=== PATIENT | male | born 1970 | race Two or more races ===

== ENCOUNTER 2022-11-23 09:00 | Inpatient (IN) | payer MEDICAID, OTHER ==
[~2022-11-23] VITALS: Ht 172.7 cm; Wt 76.6 kg
[2022-11-23 09:19] LABS: Basophils # (auto) 0.1 10 ^3/uL (0-0.2); Basophils % (auto) 0.8 % (0.0-2.0); Eosinophils # (auto) 0.1 10 ^3/uL (0-0.8); Eosinophils % (auto) 0.9 % (0.0-7.0); Hematocrit 27.7 % (41.0-53.0); Hemoglobin 9.4 g/dL (13.5-17.5); Lymphocytes # (auto) 1.4 10 ^3/uL (0.4-5.4); Lymphocytes % (auto) 14.6 % (10.0-50.0); Mean Corpuscular Hemoglobin 30.3 pg (28.0-32.0); Mean Corpuscular Volume 89.2 fL (80.0-100.0); Monocytes # (auto) 0.5 10 ^3/uL (0-1.3); Monocytes % (auto) 5.3 % (0.0-12.0); Neutrophils # (auto) 7.7 10 ^3/uL (1.6-8.6); Neutrophils % (auto) 78.4 % (37.0-80.0); Red Blood Cells 3.11 10^6/uL (4.5-5.90); Red Cell Distribution Width 14.6 % (11.8-14.3); White Blood Cell 9.8 10^3/uL (4.4-10.8)
[2022-11-23 09:36] LABS: BUN/Creatinine Ratio 16.7 (10.0-20.0); Calcium 7.6 mg/dL (8.5-10.1); Potassium 4.5 mmol/L (3.5-5.1)
[2022-11-23 09:38] LABS: Bilirubin, Total 1.4 mg/dL (0.2-1.0); Total Protein 6.6 g/dL (6.4-8.2)
[2022-11-23] MEDS ORDERED: SODIUM CHLORIDE 0.9% 1,000 ML IV ONE ×2 (11:15)
[2022-11-23] MEDS ORDERED: MORPHINE SULFATE INJ 2 MG/ml SYRG IV PRN (12:30)
[2022-11-23] MEDS ORDERED: ONDANSETRON HCL 4 MG/2 ML VIAL IV PRN (12:30)
[2022-11-23] MEDS: SODIUM CHLORIDE 0.9% 1,000 ML IV SCH ×2 (12:30→20:50)
[2022-11-23] MEDS ORDERED: DEXTROSE (50%) 50ML SYRG IV PRN (12:30)
[2022-11-23] MEDS ORDERED: DOCUSATE SOD 100 MG CAP PO PRN (12:30)
[2022-11-23 14:21] LABS: Albumin 1.9 g/dL (3.4-5.0); Bilirubin, Direct 0.6 mg/dL (0-0.2)
[2022-11-23 14:23] LABS: Total Protein 6.2 g/dL (6.4-8.2)
[2022-11-23 14:36] LABS: Thyroid Stimulating Hormone 1.73 uIU/mL (0.358-3.74)
[2022-11-23] MEDS ORDERED: IOHEXOL 350 MG/ML 100ML IJ ONE (15:06)
[2022-11-23 16:53] VITALS: BP 107/67
[2022-11-23] MEDS: ACCU-CHEK COMFORT CURVE STRIP VI SCH ×2 (16:57→22:02)
[2022-11-23] MEDS: InsuLIN REG 1unit/0.01ml Soln (100units/ml) SC SCH ×2 (16:57→22:00)
[2022-11-23 22:00] VITALS: BP 94/59
[2022-11-23] MEDS ORDERED: ENOXAPARIN SOD 100 MG/1 ML SYRINGE SC SCH (22:00)
[2022-11-23] MEDS: ENOXAPARIN SOD 80 MG/0.8ML SYRINGE SC SCH (22:02)
[2022-11-23] MEDS: PANTOPRAZOLE 40 MG/10 ML VIAL INJ IV SCH (22:02)
[2022-11-23 22:45] LABS: Urine Bacteria NONE SEEN /hpf (None Seen); Urine Blood TRACE /uL (Negative); Urine Specific Gravity 1.027 (1.001-1.035); Urine WBC 2 /hpf (0 - 3)
[2022-11-23 23:01] LABS: Alcohol, Urine < 3.0 mg/dL (0-10); Amphetamine Screen, Urine NEGATIVE (NEGATIVE); Barbiturate Scree,Urine NEGATIVE (NEGATIVE); Benzodiazephine Screen, Urine NEGATIVE (NEGATIVE); Cannabinoid Screen, Urine POSITIVE (NEGATIVE); Cocaine Screen, Urine NEGATIVE (NEGATIVE); Phencyclidine Screen, Urine NEGATIVE (NEGATIVE)
[2022-11-23 23:08] LABS: Opiate Scree,Urine NEGATIVE (NEGATIVE)
[2022-11-23] MEDS ORDERED: ACETAMINOPHEN 325 MG TAB PO PRN (23:15)
[2022-11-24 05:00] VITALS: BP 91/60
[2022-11-24] MEDS: SODIUM CHLORIDE 0.9% 1,000 ML IV SCH ×3 (05:10→22:01)
[2022-11-24 06:43] LABS: Basophils # (auto) 0.1 10 ^3/uL (0-0.2); Basophils % (auto) 0.8 % (0.0-2.0); Hemoglobin 8.1 g/dL (13.5-17.5); Lymphocytes # (auto) 1.5 10 ^3/uL (0.4-5.4); Monocytes # (auto) 0.6 10 ^3/uL (0-1.3); Red Cell Distribution Width 14.5 % (11.8-14.3)
[2022-11-24 06:44] LABS: Albumin 1.9 g/dL (3.4-5.0); Calcium 7.4 mg/dL (8.5-10.1)
[2022-11-24 06:46] LABS: Eosinophils # (auto) 0.2 10 ^3/uL (0-0.8); Eosinophils % (auto) 1.8 % (0.0-7.0); Lymphocytes % (auto) 17.7 % (10.0-50.0); Mean Corpuscular Hemoglobin 30.9 pg (28.0-32.0); Mean Corpuscular Hgb Conc. 33.7 g/dL (32.0-36.0); Mean Corpuscular Volume 91.6 fL (80.0-100.0); Monocytes % (auto) 6.6 % (0.0-12.0); Neutrophils # (auto) 6.2 10 ^3/uL (1.6-8.6); Neutrophils % (auto) 73.1 % (37.0-80.0); Nucleated Red Blood Cells % 0.1 %; Red Blood Cells 2.62 10^6/uL (4.5-5.90); White Blood Cell 8.4 10^3/uL (4.4-10.8)
[2022-11-24 06:49] LABS: BUN/Creatinine Ratio 14.9 (10.0-20.0); Bilirubin, Total 0.9 mg/dL (0.2-1.0); Total Protein 5.8 g/dL (6.4-8.2)
[2022-11-24] MEDS: InsuLIN REG 1unit/0.01ml Soln (100units/ml) SC SCH ×4 (07:00→22:00)
[2022-11-24] MEDS: ACCU-CHEK COMFORT CURVE STRIP VI SCH ×4 (07:00→22:00)
[2022-11-24 07:06] LABS: RPR Non Reactive (Non Reactive)
[2022-11-24 09:31] VITALS: BP 102/64
[2022-11-24] MEDS: ENOXAPARIN SOD 80 MG/0.8ML SYRINGE SC SCH (10:00)
[2022-11-24] MEDS: PANTOPRAZOLE 40 MG/10 ML VIAL INJ IV SCH ×2 (10:09→21:58)
[2022-11-24 12:52] VITALS: BP 98/65
[2022-11-24] MEDS: GABAPENTIN 100 MG CAP PO SCH ×2 (14:41→21:58)
[2022-11-24 17:00] VITALS: BP 98/68
[2022-11-24 22:00] VITALS: BP 106/65
[2022-11-25 05:00] VITALS: BP 94/57
[2022-11-25] MEDS: InsuLIN REG 1unit/0.01ml Soln (100units/ml) SC SCH ×4 (05:58→21:58)
[2022-11-25] MEDS: ACCU-CHEK COMFORT CURVE STRIP VI SCH ×4 (06:00→21:58)
[2022-11-25] MEDS: GABAPENTIN 100 MG CAP PO SCH ×3 (06:03→21:51)
[2022-11-25] MEDS: SODIUM CHLORIDE 0.9% 1,000 ML IV SCH ×3 (06:04→17:57)
[2022-11-25 07:01] LABS: Eosinophils # (auto) 0.1 10 ^3/uL (0-0.8); Eosinophils % (auto) 0.9 % (0.0-7.0); Nucleated Red Blood Cells % 0.1 %; Red Blood Cells 2.68 10^6/uL (4.5-5.90)
[2022-11-25 07:04] LABS: Basophils # (auto) 0 10 ^3/uL (0-0.2); Basophils % (auto) 0.5 % (0.0-2.0); Hematocrit 23.9 % (41.0-53.0); Hemoglobin 8.2 g/dL (13.5-17.5); Lymphocytes # (auto) 1.6 10 ^3/uL (0.4-5.4); Lymphocytes % (auto) 17.3 % (10.0-50.0); Mean Corpuscular Hemoglobin 30.4 pg (28.0-32.0); Mean Corpuscular Hgb Conc. 34.1 g/dL (32.0-36.0); Mean Corpuscular Volume 89.1 fL (80.0-100.0); Monocytes # (auto) 0.6 10 ^3/uL (0-1.3); Monocytes % (auto) 6.3 % (0.0-12.0); Neutrophils # (auto) 6.9 10 ^3/uL (1.6-8.6); Red Cell Distribution Width 14.4 % (11.8-14.3); White Blood Cell 9.1 10^3/uL (4.4-10.8)
[2022-11-25 07:23] LABS: Potassium 4.5 mmol/L (3.5-5.1)
[2022-11-25 07:38] LABS: Bilirubin, Total 0.8 mg/dL (0.2-1.0); Calcium 7.8 mg/dL (8.5-10.1)
[2022-11-25 09:00] VITALS: BP 92/60
[2022-11-25] MEDS: PANTOPRAZOLE 40 MG/10 ML VIAL INJ IV SCH ×2 (09:47→21:51)
[2022-11-25 12:18] VITALS: BP 91/71
[2022-11-25 17:14] VITALS: BP 96/49
[2022-11-25] MEDS ORDERED: cefTRIAXone 1GM/50ML D5W 50 ML IV ONE (17:45)
[2022-11-25] MEDS: SODIUM CHL 0.9% IV SCH (21:57)
[2022-11-25] MEDS: IRON SUCROSE COMPLEX IV SCH (21:57)
[2022-11-25 22:00] VITALS: BP 94/50
[2022-11-26] MEDS: SODIUM CHLORIDE 0.9% 1,000 ML IV SCH (03:30)
[2022-11-26 05:00] VITALS: BP 96/54
[2022-11-26 06:07] LABS: % Iron Saturation 19.6 % (20-55)
[2022-11-26 06:08] LABS: BUN/Creatinine Ratio 7.2 (10.0-20.0); Calcium 7.5 mg/dL (8.5-10.1); Potassium 4.2 mmol/L (3.5-5.1)
[2022-11-26 06:11] LABS: Bilirubin, Total 0.8 mg/dL (0.2-1.0); Total Protein 6.2 g/dL (6.4-8.2)
[2022-11-26] MEDS: GABAPENTIN 100 MG CAP PO SCH ×2 (06:21→15:54)
[2022-11-26] MEDS: ACCU-CHEK COMFORT CURVE STRIP VI SCH ×3 (06:22→17:00)
[2022-11-26] MEDS: InsuLIN REG 1unit/0.01ml Soln (100units/ml) SC SCH ×3 (06:23→17:00)
[2022-11-26 09:00] VITALS: BP 95/66
[2022-11-26] MEDS ORDERED: cefTRIAXone 1GM/50ML D5W 50 ML IV SCH (09:00)
[2022-11-26] MEDS: PANTOPRAZOLE 40 MG/10 ML VIAL INJ IV SCH (10:21)
[2022-11-26 12:38] VITALS: BP 95/60
[2022-11-26] MEDS ORDERED: PANT40T PO (16:12)
[2022-11-26] MEDS ORDERED: NUTR-340 PO (16:12)
[2022-11-26] MEDS ORDERED: GAB100C PO (16:12)
[2022-11-26] MEDS ORDERED: FERR-7 PO (16:13)
[2022-11-26 16:28] VITALS: BP 91/63
[2022-11-26] MEDS: IRON SUCROSE COMPLEX IV SCH (18:00)
[2022-11-26] MEDS: SODIUM CHL 0.9% IV SCH (18:00)
== END 2022-11-26 18:30 | disposition home or self-care (01) | DRG 422 ==
LOC: ER 09:00 → TELE 12:33 → TELE-WESTW 15:13
PROVIDERS: ADMIT Nurse Practitioner Family; ATTEND Hospitalist
DX: E86.0 Dehydration (principal); E43 Unspecified severe protein-calorie malnutrition; K92.2 Gastrointestinal hemorrhage, unspecified; D63.8 Anemia in other chronic diseases classified elsewhere; E87.1 Hypo-osmolality and hyponatremia; Z20.822 Contact with and (suspected) exposure to COVID-19; D50.0 Iron deficiency anemia secondary to blood loss (chronic); K21.9 Gastro-esophageal reflux disease without esophagitis; Z68.25 Body mass index [BMI] 25.0-25.9, adult
CPT/HCPCS: 36415; 70450; 71045; 71275; 76705; 80053; 80076; 80307; 81001; 82270; 82550; 82553; 82607; 82728; 82962; 82977; 83540; 83550; 83605; 83615; 83690; 84443; 84484; 85025; 85379; 85652; 86592; 86703; 86850; 86900; 86901; 87426; 93005; 93886; 93970; 96360; 96361; 97110; 97116; 97163; 97530; C9113; G0378; J0696; J1756

== ENCOUNTER → 2022-12-18 | Outpatient (CLI) | payer MEDICAID ==
[~2022-12-18] MED LIST: FERR-7 PO; GAB100C PO; NUTR-340 PO; PANT40T PO
== END | disposition home or self-care (01) ==
LOC: LAB 14:05
PROVIDERS: ATTEND Internal Medicine
DX: I10 Essential (primary) hypertension (principal)
CPT/HCPCS: 82274

== ENCOUNTER → 2023-01-23 | Outpatient (CLI) | payer MEDICAID | END | disposition home or self-care (01) | LOC: XYW 08:34 | PROVIDERS: ATTEND Internal Medicine | DX: I35.0 Nonrheumatic aortic (valve) stenosis (principal); G45.9 Transient cerebral ischemic attack, unspecified | CPT/HCPCS: 93306 ==

== ENCOUNTER 2024-03-26 12:12 | Emergency (ER) | payer MEDICAID | END 2024-03-26 13:26 | disposition left against medical advice (07) | LOC: ER 12:12 | DX: Z04.3 Encounter for examination and observation following other accident (principal); Z53.21 Procedure and treatment not carried out due to patient leaving prior to being seen by health care provider ==

== ENCOUNTER 2024-03-28 10:09 | Emergency (ER) | payer MEDICAID ==
[~2024-03-28] VITALS: Ht 175.3 cm; Wt 83.9 kg
[2024-03-28 11:18] VITALS: BP 155/96; PULSE 65; RESP 15; TEMP 98; O2SAT 99
[2024-03-28] MEDS: HYDROcodone-ACET 5/325MG TAB PO ONE (11:18)
[2024-03-28] MEDS ORDERED: IBU600T PO (12:59)
== END 2024-03-28 13:00 | disposition left against medical advice (07) ==
LOC: ER 10:09
DX: S76.811A Strain of other specified muscles, fascia and tendons at thigh level, right thigh, initial encounter (principal); S76.011A Strain of muscle, fascia and tendon of right hip, initial encounter; Z79.899 Other long term (current) drug therapy; W01.0XXA Fall on same level from slipping, tripping and stumbling without subsequent striking against object, initial encounter; Y93.89 Activity, other specified; Y92.59 Other trade areas as the place of occurrence of the external cause; Y99.8 Other external cause status
CPT/HCPCS: 36415; 72100; 73502; 82550

== ENCOUNTER 2024-10-01 10:50 | Emergency (ER) | payer MEDICAID ==
[~2024-10-01] VITALS: Ht 175.3 cm; Wt 79.5 kg
[~2024-10-01 10:50] MED LIST changes: +IBU600T PO
[2024-10-01 13:10] VITALS: BP 138/77; PULSE 71; RESP 16; TEMP 98.5; O2SAT 99
[2024-10-01] MEDS: LIDOCAINE 1% HCL (LOCAL ANESTH.) INJ 20ML MDV IJ ONE (13:21)
--- NOTE | 2024-10-01 13:29 | ED.PDOC ---
HPI Comments A 53 YEAR OLD MALE PRESENTS TO THE ED WITH COMPLAINT OF LACERATION OF RIGHT INNER THIGH AND LEFT LOWER LEG. PATIENT STATES HE ACCIDENTALLY FELL AND HIT A CHAIN-LINK FENCE. PATIENT REPORTS HE SUSTAINED A LACERATION ON HIS RIGHT INNER THIGH AND LEFT LOWER LEG. BLEEDING IS CONTROLLED AT THIS TIME. PATIENT DENIES HEAD INJURY, NECK INJURY, LOC, FEVER, CHILLS, SHORTNESS OF BREATH, CHEST PAIN, ABDOMINAL PAIN, NAUSEA, VOMITING, HEADACHE, OR OTHER COMPLAINTS. NO OTHER SYMPTOMS OR MODIFYING FACTORS AT THIS TIME. PATIENT IS ALERT, ORIENTED X 4, AND HAS STEADY GAIT. Chief Complaint: Laceration Time Seen by MD: 11:25 Primary Care Provider: CHER Fischer Notes: Nurses Notes, Medications, Allergies Allergies: Coded Allergies: NO KNOWN ALLERGIES (Unverified , 01/02/12) Home Meds Active Scripts Acetaminophen (Tylenol Extra Strength Fo) 500 Mg Tab, 1000 MG PO BID, #30 TAB Prov:WILBERT THORPE 10/01/24 Cephalexin Monohydrate (Cephalexin) 500 Mg Cap, 1 CAP PO QID, #32 CAP Prov:WILBERT THORPE 10/01/24 Ibuprofen Micronized (MOTRIN TABLET) 600 Mg Tb, 600 MG PO TID PRN, #20 TAB *Black box warning-NSAIDS can increase risk of [place] & hypertension, GI irritation, ulceration, bleed, perferation. Do not use post cardiac surgery. Use short duration/lowest effective dose. Prov:NICOL HOLT MD 03/28/24 Ferrous Sulfate (Iron) 325 Mg Tab, 325 MG PO MWF, #30 TAB Prov:JOSE ANGEL CHAPMAN MD 11/26/22 Nutritional Supplements (Boost Plus) Strawber Liq, 1 BOT PO DAILY@LUNCH, #30 LIQ Prov:JOSE ANGEL CHAPMAN MD 11/26/22 Gabapentin (Gabapentin) 100 Mg Cap, 100 MG PO TID, #90 CAP Prov:JOSE ANGEL CHAPMAN MD 11/26/22 Pantoprazole Sodium Sesquihydr (Pantoprazole Sodium) 40 Mg Tab, 40 MG PO DAILY@BREAKFAST, #30 TAB Prov:JOSE ANGEL CHAPMAN MD 11/26/22 Information Source: Patient Mode of Arrival: Ambulatory Severity: Moderate Severity of Laceration: Controlled Bleeding Complexity: Simple Timing: Hours Prehospital treatment: None Laceration Location: Leg (RIGHT INNER THIGH, LEFT LOWER LEG) Mechanism: Metal, Fall Last Tetanus: Unknown Laceration Length (cm): 8 Skin Type: Linear Depth of Injury: Skin, SQ Tendon Injury: 0% Capillary Refill: < 3 seconds Tender: Moderate Discharge: None Erythema: None Associated Signs and Symptoms: None Past Medical History Past Medical History (Other): CHRONIC LOW BACK PAIN Surgical History: Denies all surgeries Family History Family History: Reviewed,noncontributory to illness Social History Smoker: Non-Smoker Alcohol: Denies ETOH Use Drugs: Denies Drug Use Lives In: Home Constitutional: denies: chills, diaphoresis, fatigue, fever, malaise, sweats, weakness, others EENTM: denies: blurred vision, double vision, ear bleeding, ear discharge, ear drainage, ear pain, ear ringing, eye pain, eye redness, hearing loss, mouth pain, mouth swelling, nasal discharge, nose bleeding, nose congestion, nose pain, photophobia, tearing, throat pain, throat swelling, voice changes, others Respiratory: denies: cough, hemoptysis, orthopnea, SOB at rest, shortness of breath, SOB with excertion, stridor, wheezing, others Cardiovascular: denies: chest pain, dizzy spells, diaphoresis, Dyspnea on exertion, edema, irregular heart beat, left arm pain, lightheadedness, palpitations, PND, syncope, others Gastrointestinal: denies: abdomen distended, abdominal pain, blood streaked bowels, constipated, diarrhea, dysphagia, difficulty swallowing, hematemesis, melena, nausea, poor appetite, poor fluid intake, rectal bleeding, rectal pain, vomiting, others Genitourinary: denies: burning, dysuria, flank pain, frequency, hematuria, incontinence, penile discharge, penile sore, pain, testicle pain, testicle swelling, urgency, others Neurological: denies: dizziness, fainting, headache, left sided numbness, left sided weakness, numbness, paresthesia, pre-existing deficit, right sided numbness, right sided weakness, seizure, speech problems, tingling, tremors, weakness, others Musculoskeletal: denies: back pain, gout, joint pain, joint swelling, muscle pain, muscle stiffness, neck pain, others Integumetry: reports: laceration (LACERATION OF RIGHT INNER THIGH AND LEFT LOWER LEG); denies: bruises, change in color, change in hair/nails, dryness, lesions, lumps, rash, wounds, others Allergic/Immunocompromised: denies: Difficulty Healing, Frequent Infections, Hives, Itching, others Hematologic/Lymphatic: denies: anemia, blood clots, easy bleeding, easy bruising, swollen glands, others Endocrine: denies: excessive hunger, excessive sweating, excessive thirst, excessive urination, flushing, intolerance to cold, intolerance to heat, unexplained weight gain, unexplained weight loss, others Psychiatric: denies: anxiety, bipolar disorder, depression, hopeless, panic disorder, schizophrenia, sleepless, suicidal, others All Other Systems: Reviewed and Negative Physical Exam General Appearance: No Apparent Distress, Normal HEENT: Normal ENT Inspection, PERRL/EOMI, Pharynx Normal, TMs Normal Neck: Full Range of Motion, Non-Tender, Normal, Normal Inspection Respiratory: Chest Non-Tender, Lungs Clear, No Accessory Muscle Use, No Respiratory Distress, Normal Breath Sounds Cardiovascular: No Edema, No JVD, No Murmur, No Gallop, Normal Peripheral Pulses, Regular Rate/Rhythm Breast Exam: Deferred Gastrointestinal: No Organomegaly, Non Tender, No Pulsatile Mass, Normal Bowel Sounds, Soft Genitalia: Deferred Pelvic: Deferred Rectal: Deferred Extremities: No calf tenderness, Normal capillary refill, Normal inspection, Normal range of motion, Non-tender, No pedal edema Musculoskeletal : Apperance: Normal Neurologic: Alert, bridge welder II-XII nml as Tested, No Motor Deficits, Normal Affect, Normal Mood, No Sensory Deficits Cerebellar Function: Normal Reflexes: Normal Skin: Dry, Lacerations (3CM LACERATION ON RIGHT INNER THIGH, NO BLEEDING AND FB, NORMAL ROM. 5CM LACERATION ON LEFT LATERAL LOWER LEG, NO BLEEDING AND FB, NEUROVASCULAR INTACT. ), Normal Color, Warm Peripheral Pulses: 2+ carotid (R), 2+ carotid (L), 2+ dorsalis pedis (R), 2+ dorsalis pedis (L) Lymphatic: No Adenopathy Was a procedure done? Was a procedure done?: Yes Sedation Sedation?: No Laceration Repair : Location RIGHT INNER THIGH, LEFT LOWER LEG Length RIGHT INNER THIGH: 3CM, LEFT LOWER LECM Anesthetic: Lidocaine, Without epi Laceration Repair Prep: Saline, by Irrigation Laceration Repair Wound Comple: epidermis/dermis repair Laceration Repair: Number of sutures (16), Skin, SQ, Size (4-0 ETHILON), Nylon, Simple, Gauze Informed consent obtained: No Risks, benefits, and alternati: Yes Images 1 - 2 - Differential diagnosis Generic Laceration: Abrasion/Contusion, Laceration, Avulsion Differential Diagnosis: N/A X-Ray, Labs, Meds, VS Vital Signs Date Time Temp Pulse Resp B/P (MAP) Pulse Ox O2 Delivery O2 Flow Rate FiO2 10/01/24 13:10 98.5 71 16 138/77 (97) 99 98.5 10/01/24 13:10 71 16 99 Room Air 10/01/24 11:15 98.5 71 6 138/77 (97) 99 98.5 X-Ray, Labs, Meds, VS Comment EXTERNAL MEDICAL RECORDS REVIEWED: [NONE] INDEPENDENT HISTORIANS: [NONE] SOCIAL DETERMINANTS OF HEALTH: [NONE] LABS ORDERED: NONE REVIEWED AND INTERPRETED RESULTS: NONE IMAGING ORDERED: NONE TREATMENTS ORDERED: LACERATION REPAIR, TD 0.5ML IM PROCEDURES PERFORMED: LACERATION REPAIR CRITICAL CARE TIME: NONE I HAVE DISCUSSED THE PATIENT WITH THE ATTENDING PHYSICIAN DR. JOHNSON AND HE AGREES WITH THE PATIENT'S PLAN OF CARE AND DISPOSITION. BASED ON HISTORY OF PRESENT ILLNESS, AND PHYSICAL EXAM, PATIENT WILL BE DISCHARGED HOME. SHARED DECISION MAKING: PATIENT INSTRUCTED TO FOLLOW UP WITH PRIMARY CARE PROVIDER IN 1-2 DAYS FOR RE-EVALUATION OF SYMPTOMS. PATIENT VERBALIZES UNDERSTANDING TO RETURN TO ED FOR NEW OR WORSENING SYMPTOMS OR IF FOLLOW UP WITH PCP CANNOT BE OBTAINED. PATIENT FEELS COMFORTABLE GOING HOME AT THIS TIME. ALL QUESTIONS ADDRESSED AT TIME OF DISCHARGE. Time of 1ST Reevaluation: 14:30 Reevaluation 1ST: Improved Patient Education/Counseling: Diagnosis, Treatment, Need For Follow Up Family Education/Counseling: Diagnosis, Treatment, Need For Follow Up Medical Screening: No EMC Exist At This Time Departure 1 Departure Time of Disposition: 14:40 Impression: Primary Impression: Laceration of right thigh Qualified Codes: S71.111A - Laceration without foreign body, right thigh, initial encounter Additional Impressions: Laceration of left lower leg Qualified Codes: S81.812A - Laceration without foreign body, left lower leg, initial encounter Status post fall Disposition: HOME / SELF CARE / HOMELESS Condition: Stable Additional Instructions: FOLLOW-UP WITH PCP IN 1 TO 2 DAYS. TAKE MEDICATIONS PRESCRIBED. RETURN TO ED FOR ANY NEW OR WORSENING SYMPTOMS. e-Prescriptions Acetaminophen (Tylenol Extra Strength Fo) 500 Mg Tab 1000 MG PO BID, #30 TAB Prov: WILBERT THORPE 10/01/24 Cephalexin Monohydrate (Cephalexin) 500 Mg Cap 1 CAP PO QID, #32 CAP Prov: WILBERT THORPE 10/01/24 Discharged With: Self Critical Care Note Critical Care Time?: No Stability Stability form required: No I personally scribed for WILBERT THORPE ([email or web address]) on 10/01/24 at 13:29. Electronically submitted by Mark Pennington ([employer]). I personally scribed for WILBERT THORPE ([email or web address]) on 10/01/24 at 13:59. Electronically submitted by Mark Pennington ([employer]). I personally scribed for WILBERT THORPE ([email or web address]) on 10/01/24 at 14:07. Electronically submitted by Mark Pennington ([employer]). WILBERT THORPE Oct 01, 2024 13:29
[2024-10-01] MEDS ORDERED: CEPH500C PO (14:22)
[2024-10-01] MEDS ORDERED: ACET-1304 PO (14:22)
[2024-10-01] MEDS: TETANUS-DIPTH-ACEL PERTUSSIS 0.5ML SYR Tdap IM ONE (14:24)
== END 2024-10-01 14:32 | disposition home or self-care (01) ==
LOC: ER 10:50
DX: S81.812A Laceration without foreign body, left lower leg, initial encounter (principal); S71.111A Laceration without foreign body, right thigh, initial encounter; G89.29 Other chronic pain; Z79.899 Other long term (current) drug therapy; W18.09XA Striking against other object with subsequent fall, initial encounter; Y93.89 Activity, other specified; Y92.89 Other specified places as the place of occurrence of the external cause; Y99.8 Other external cause status
CPT/HCPCS: 12004; 90471; 90715; 99283; J2003

== ENCOUNTER 2025-01-10 10:46 | Outpatient (CLI) | payer MEDICAID ==
[~2025-01-10 10:46] MED LIST changes: +ACET-1304 PO; +CEPH500C PO
[2025-01-10 11:08] LABS: Urine Bacteria None Seen /hpf (None Seen)
[2025-01-10 11:15] LABS: Basophils # (auto) 0 10 ^3/uL (0-0.2); Basophils % (auto) 0.9 % (0.0-2.0); Eosinophils # (auto) 0.2 10 ^3/uL (0-0.8); Eosinophils % (auto) 3.4 % (0.0-7.0); Hematocrit 47.7 % (41.0-53.0); Lymphocytes # (auto) 1.6 10 ^3/uL (0.4-5.4); Lymphocytes % (auto) 30.1 % (10.0-50.0); Mean Corpuscular Hemoglobin 29.6 pg (28.0-32.0); Mean Corpuscular Hgb Conc. 33.7 g/dL (32.0-36.0); Monocytes # (auto) 0.4 10 ^3/uL (0-1.3); Monocytes % (auto) 7.5 % (0.0-12.0); Neutrophils # (auto) 3.1 10 ^3/uL (1.6-8.6); Neutrophils % (auto) 58.1 % (37.0-80.0); Nucleated Red Blood Cells % 0.2 %; Platelet Count (auto) 231 10^3/uL (140-450); Red Blood Cells 5.42 10^6/uL (4.5-5.90); Red Cell Distribution Width 14.1 % (11.8-14.3); White Blood Cell 5.4 10^3/uL (4.4-10.8)
[2025-01-10 11:21] LABS: Urine Blood Negative /uL (Negative); Urine Clarity Clear (Clear); Urine Color Light-Yellow (Yellow); Urine Protein, UAD Negative (Negative); Urine Specific Gravity 1.019 (1.001-1.035); Urine Squamous Epithelial Cell FEW /hpf (<5); Urine Urobilinogen Normal (Negative); Urine WBC 1 /HPF (0-3)
[2025-01-10 11:37] LABS: Alanine Aminotransferase 26 U/L (7-40); Albumin 4.7 g/dL (3.2-4.8); Alkaline Phosphatase 85 U/L (46-116); Anion Gap 7 (5-15); Aspartate Aminotransferase 23 U/L (<34); BUN/Creatinine Ratio 14.6 (10.0-20.0); Blood Urea Nitrogen 14 mg/dL (9-23); Calcium 10.1 mg/dL (8.7-10.4); Carbon Dioxide 29 mmol/L (20-31); Chloride 105 mmol/L (98-107); Glucose 101 mg/dL (74-106); Potassium 4.2 mmol/L (3.5-5.1); Sodium 141 mmol/L (136-145); Total Protein 7.4 g/dL (5.7-8.2)
[2025-01-10 11:38] LABS: Bilirubin, Total 0.6 mg/dL (0.2-1.0); Cholesterol 223 mg/dL (< 200); HDL Cholesterol 59 mg/dL (40-59); LDL Cholesterol 160 mg/dL (< 100); Triglycerides 195 mg/dL (< 150)
[2025-01-10 11:43] LABS: Prostate Specific Antigen 2.37 ng/mL (0.0-4.0)
== END 2025-01-10 17:00 | disposition home or self-care (01) ==
LOC: LAB 10:46
PROVIDERS: ATTEND Internal Medicine
DX: E53.8 Deficiency of other specified B group vitamins (principal); K21.9 Gastro-esophageal reflux disease without esophagitis
CPT/HCPCS: 36415; 80053; 80061; 81001; 82274; 82306; 82607; 83036; 84153; 84443; 85025